=== PATIENT | female | born 1995 | race American Indian/Alaskan Native ===

== ENCOUNTER 2017-07-02 15:56 | Emergency (ER) | payer OTHER ==
[2017-07-02 15:57] VITALS: BMI 33.9
[2017-07-02 16:26] VITALS: TEMP 98.8; O2SAT 98
--- NOTE | 2017-07-02 17:43 | C.PDOC ---
History Of Present Illness 21 year old female presents to the ED for evaluation of generalized body aches, cough, and congestion which began yesterday. Patient reports family members at home with the same symptoms. Patient denies fever, chills, chest pain, shortness of breath. Time Seen by Provider: 07/02/17 16:55 Chief Complaint (Nursing): Flu-like Symptoms History Per: Patient History/Exam Limitations: no limitations Onset/Duration Of Symptoms: Hrs Current Symptoms Are (Timing): Still Present Associated Symptoms: Cough, Nasal Congestion, Other (body aches ) Additional History Per: Patient Past Medical History Reviewed: Historical Data, Nursing Documentation, Vital Signs Vital Signs: Last Vital Signs Temp 98.8 F 07/02/17 16:22 Pulse 88 07/02/17 18:30 Resp 18 07/02/17 19:06 BP 101/66 07/02/17 18:30 Pulse Ox 98 07/02/17 21:19 - Medical History PMH: Migraine Surgical History: No Surg Hx - [facility] Procedures DELIVERY OF PRODUCTS OF CONCEPTION, EXTERNAL APPROACH (11/16/15) MANUAL ASSIST DELIV NEC (03/15/14) Family History: States: Unknown Family Hx - Social History Hx Tobacco Use: No Hx Alcohol Use: No Hx Substance Use: No - Immunization History Hx Tetanus Toxoid Vaccination: No Hx Influenza Vaccination: No Hx Pneumococcal Vaccination: No Review Of Systems ENT: Positive for: Nose Congestion Cardiovascular: Negative for: Chest Pain Respiratory: Positive for: Cough. Negative for: Shortness of Breath Musculoskeletal: Positive for: Other (generalized body aches ) Physical Exam - Physical Exam Appears: Well, Non-toxic, No Acute Distress Skin: Normal Color, Warm, Dry Head: Atraumatic, Normacephalic Eye(s): bilateral: Normal Inspection, EOMI Ear(s): Bilateral: Normal Nose: Normal, No Discharge Oral Mucosa: Moist Throat: Normal, No Erythema, No Exudate Neck: Normal ROM, Supple Chest: Symmetrical, No Deformity, No Tenderness Cardiovascular: Rhythm Regular Respiratory: Normal Breath Sounds, No Rales, No Rhonchi, No Wheezing Gastrointestinal/Abdominal: Soft, No Tenderness Extremity: Normal ROM, Capillary Refill (less than 2 seconds ) ED Course And Treatment O2 Sat by Pulse Oximetry: 98 (on RA ) Pulse Ox Interpretation: Normal Progress Note: Flu test ordered and resulted positive. Motrin PO and Tamiflu PO administered. Patient is resting comfortably, tolerating PO, and is afebrile at this time. Clinical signs and symptoms are not suggestive of sepsis , meningitis, UTI, pneumonia, intra-abdominal pathology, or cellulitis. Patient will be discharged home, and instructed to follow up with his/her physician in 1-2 days without fail. Patient was instructed to return for any worsening symptoms, persistent fever, neck pain, rash, abdominal pain, or vomiting. Disposition - Disposition Disposition: HOME/ ROUTINE Disposition Time: 18:54 Condition: STABLE Additional Instructions: Follow up with your primary medical doctor or clinic in 2-5 days for further evaluation. Take medications as prescribed. Return to the emergency department at any time if symptoms persist or worsen. 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 - Scribe Statement The provider has reviewed the documentation as recorded by the Scribe (Khadijah Sandoval) All medical record entries made by the Scribe were at my direction and personally dictated by me. I have reviewed the chart and agree that the record accurately reflects my personal performance of the history, physical exam, medical decision making, and the department course for this patient. I have also personally directed, reviewed, and agree with the discharge instructions and disposition.
[2017-07-02 18:49] VITALS: BP 101/66; PULSE 88
[2017-07-02 19:07] VITALS: RESP 18
== END 2017-07-02 19:07 | disposition home or self-care (01) ==
LOC: C.ER 15:56
DX: J11.1 Influenza due to unidentified influenza virus with other respiratory manifestations (principal)

== ENCOUNTER 2017-12-12 15:54 | Emergency (ER) | payer OTHER ==
[2017-12-12 15:54] VITALS: BMI 33.9
[2017-12-12 16:17] VITALS: BP 107/67; PULSE 63; RESP 18; TEMP 99; O2SAT 98
--- NOTE | 2017-12-12 16:45 | C.PDOC ---
History Of Present Illness 22 y/o female presents to the ED with 4 days of right knee pain. States she fell down the stairs on Sunday12/09/17. She felt as if her knee gave out from under her, and denies any head trauma or LOC. [place] [facility] [place] and was discharged [place]. Now patient complains of persistent pain. 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 She is requesting to have MRI of the knee. Otherwise patient denies any numbness, tingling, or other complaints. Time Seen by Provider: 12/12/17 16:25 Chief Complaint (Nursing): Lower Extremity Problem/Injury History Per: Patient History/Exam Limitations: no limitations Onset/Duration Of Symptoms: Days Current Symptoms Are (Timing): Still Present Past Medical History Reviewed: Historical Data, Nursing Documentation, Vital Signs Vital Signs: Last Vital Signs Temp 99 F 12/12/17 16:14 Pulse 63 12/12/17 16:14 Resp 18 12/12/17 16:14 BP 107/67 12/12/17 16:14 Pulse Ox 98 12/12/17 16:45 - Medical History PMH: Migraine - [facility] Procedures DELIVERY OF PRODUCTS OF CONCEPTION, EXTERNAL APPROACH (11/16/15) MANUAL ASSIST DELIV NEC (03/15/14) Family History: States: Unknown Family Hx - Social History Hx Tobacco Use: No Hx Alcohol Use: No Hx Substance Use: No - Immunization History Hx Tetanus Toxoid Vaccination: No Hx Influenza Vaccination: No Hx Pneumococcal Vaccination: No Review Of Systems Except As Marked, All Systems Reviewed And Found Negative. Constitutional: Negative for: Fever Musculoskeletal: Positive for: Leg Pain (right knee pain and swelling) Skin: Negative for: Lesions, Bruising Neurological: Negative for: Weakness, Numbness, Incoordination Physical Exam - Physical Exam Appears: Non-toxic, No Acute Distress Skin: Normal Color, Warm, No Rash Head: Atraumatic, Normacephalic Eye(s): bilateral: Normal Inspection Oral Mucosa: Moist Neck: Normal ROM, Supple Chest: Symmetrical Extremity: Tenderness (over the right patella), No Calf Tenderness, Capillary Refill (< 2 sec), No Deformity, Other (Decreased ROM of right leg, decreased flexion of the right knee) Pulses: Left Dorsalis Pedis: Normal, Right Dorsalis Pedis: Normal Neurological/Psych: Oriented x3, Normal Speech, Normal Motor, Normal Sensation ED Course And Treatment O2 Sat by Pulse Oximetry: 98 (RA) Pulse Ox Interpretation: Normal Medical Decision Making Medical Decision Making: Impression: 22 year old with right knee injury Plan: Patient informed that MRI cannot be obtained via the emergency room, and she will need to follow up with PMD for outpatient MRI. On further discussion, patient requests work note demonstrating permission to return tomorrow. Work note and follow up instructions provided. Patient is medically stable. There is understanding of and agreement to discharge plan. Disposition Counseled Patient/Family Regarding: Diagnosis, Need For Followup - Disposition Referrals: Shaik Koch MD [Staff Provider] - Disposition: HOME/ ROUTINE Disposition Time: 16:41 Condition: GOOD Additional Instructions: CRAIG STATON, thank you for letting us take care of you today. The emergency medical care you received today was directed at your acute symptoms. If you were prescribed any medication, please fill it and take as directed. It may take several days for your symptoms to resolve. Return to the Emergency Department if your symptoms worsen, do not improve, or if you have any other problems. Please contact your doctor or call one of the physicians/clinics you have been referred to that are listed on the Patient Visit Information form that is included in your discharge packet. Bring any paperwork you were given at discharge with you along with any medications you are taking to your follow up visit. Our treatment cannot replace ongoing medical care by a primary care provider outside of the emergency department. Thank you for allowing the [facility] team to be part of your care today. Follow up with your primary care doctor in 3-5 days for re-evaluation and further management. Instructions: Knee Sprain (DC) Forms: [employer] (Italian), Work Excuse - POA Present On Arrival: None - Clinical Impression Clinical Impression: Knee sprain - Scribe Statement The provider has reviewed the documentation as recorded by the Scribe (Essence Mosquera) All medical record entries made by the Scribe were at my direction and personally dictated by me. I have reviewed the chart and agree that the record accurately reflects my personal performance of the history, physical exam, medical decision making, and the department course for this patient. I have also personally directed, reviewed, and agree with the discharge instructions and disposition.
== END 2017-12-12 17:06 | disposition home or self-care (01) ==
LOC: C.ER 15:54
DX: S83.91XA Sprain of unspecified site of right knee, initial encounter (principal); W10.9XXA Fall (on) (from) unspecified stairs and steps, initial encounter

== ENCOUNTER 2018-03-24 01:21 | Emergency (ER) | payer OTHER ==
[2018-03-24 01:27] VITALS: BMI 23.5
[2018-03-24 01:41] VITALS: O2SAT 97
--- NOTE | 2018-03-24 01:53 | C.PDOC ---
History Of Present Illness 22 year old female is brought to the ED by ambulance and police for evaluation of argumentative behavior noted prior to arrival. Patient was involved in an argument with her female partner, who she found out has a child with another male. Patient reports homicidal ideation against this male. Patient is bizarre, cannot be redirected. She admits to drinking alcohol earlier today. Patient denies suicidal ideation. Time Seen by Provider: 03/24/18 01:26 Chief Complaint (Nursing): Psychiatric Evaluation History Per: Patient History/Exam Limitations: no limitations Onset/Duration Of Symptoms: Hrs Current Symptoms Are (Timing): Still Present Suicide/Self Injury Attempted (Context): None Modifying Factor(s): Alcohol Associated Symptoms: denies: Suicidal Thoughts, Suicidal Plan Additional History Per: Patient, EMS, Law Enforcement Past Medical History Reviewed: Historical Data, Nursing Documentation, Vital Signs Vital Signs: Last Vital Signs Temp 98.6 F 03/24/18 01:35 Pulse 72 03/24/18 01:35 Resp 20 03/24/18 01:35 BP 138/88 03/24/18 01:35 Pulse Ox 97 03/24/18 01:35 - Medical History PMH: Migraine Surgical History: No Surg Hx - [facility] Procedures DELIVERY OF PRODUCTS OF CONCEPTION, EXTERNAL APPROACH (11/16/15) MANUAL ASSIST DELIV NEC (03/15/14) Family History: States: Unknown Family Hx - Social History Hx Tobacco Use: No Hx Alcohol Use: No Hx Substance Use: No - Immunization History Hx Tetanus Toxoid Vaccination: No Hx Influenza Vaccination: No Hx Pneumococcal Vaccination: No Review Of Systems Psych: Positive for: Other (arugmentative, homicidal ideation, alcohol use ) Physical Exam - Physical Exam Appears: Non-toxic, No Acute Distress, Other (tall, thin black female) Skin: Normal Color, Warm, Dry, No Other (signs of trauma/injuries ) Head: Atraumatic, Normacephalic Eye(s): bilateral: Normal Inspection Extremity: Normal ROM Neurological/Psych: Other (bizarre, argumentative, screaming, unable to be redirected) ED Course And Treatment - Laboratory Results Result Diagrams: 03/24/18 02:38 03/24/18 02:38 Lab Interpretation: Normal (ua neg, tox neg.) Urine POC: Negative O2 Sat by Pulse Oximetry: 97 (on RA) Pulse Ox Interpretation: Normal Progress Note: Bloodwork and urinalysis ordered and reviewed. Ativan IM and Geodon IM given. Reevaluation Time: 06:05 Reassessment Condition: Improved Medical Decision Making Medical Decision Making: sober angry behavior related to broken marraige and relationship issues cleared by Crisis for d/c and opt f/u. no HI/SI Disposition Doctor Will See Patient In The: Office Counseled Patient/Family Regarding: Studies Performed, Diagnosis - Disposition Disposition: HOME/ ROUTINE Disposition Time: 06:06 Condition: GOOD Forms: [employer] (Wallisian) - Clinical Impression Clinical Impression: Anger reaction - Scribe Statement The provider has reviewed the documentation as recorded by the Scribe (Khadijah Sandoval) Provider Attestation: All medical record entries made by the Scribe were at my direction and personally dictated by me. I have reviewed the chart and agree that the record accurately reflects my personal performance of the history, physical exam, medical decision making, and the department course for this patient. I have also personally directed, reviewed, and agree with the discharge instructions and disposition.
[2018-03-24 02:40] LABS: HCG,QUALITATIVE URINE NEGATIVE (NEGATIVE)
[2018-03-24 02:41] LABS: BASO % 0.5 % (0.0-2.0); EOS # 0.1 K/uL (0.0-0.7); EOS % 1.4 % (0.0-4.0); HEMOGLOBIN 12.9 g/dL (11.0-16.0); LYMPH # 1.9 K/uL (1.0-4.3); LYMPH % 35.3 % (20.0-40.0); MEAN CELL VOLUME 90.1 fL (81.0-99.0); MEAN CORPUSCULAR HEMOGLOBIN 30.6 pg (27.0-31.0); MEAN CORPUSCULAR HGB CONC 33.9 g/dL (33.0-37.0); MEAN PLATELET VOLUME 9.1 fL (7.2-11.7); MONO # 0.5 K/uL (0.0-0.8); MONO % 9.3 % (0.0-10.0); NEUT # 2.8 K/uL (1.8-7.0); NEUT % 53.5 % (50.0-75.0); RBC 4.21 Mil/uL (3.80-5.20); RED CELL DISTRIBUTION WIDTH 12.4 % (11.5-14.5); WHITE BLOOD COUNT 5.3 K/uL (4.8-10.8)
[2018-03-24 02:55] LABS: ACETAMINOPHEN < 10.0 ug/mL (10.0-30.0); ALB/GLOB RATIO 1.5 (1.0-2.1); ALBUMIN 4.3 g/dL (3.5-5.0); ALT/SGPT 20 U/L (9-52); AST/SGOT 26 U/L (14-36); BLOOD UREA NITROGEN 13 mg/dL (7-17); CALCIUM 8.8 mg/dl (8.6-10.4); GFR NON-AFRICAN AMERICAN > 60; SALICYLATE < 1.0 mg/dL 1
[2018-03-24 02:57] LABS: BARBITURATES, UR NEGATIVE (NEGATIVE); BENZODIAZEPINES, UR NEGATIVE (NEGATIVE); OPIATES, UR NEGATIVE (NEGATIVE); PHENCYCLIDINE, UR NEGATIVE (NEGATIVE)
[2018-03-24 03:00] LABS: URINE BILIRUBIN NEGATIVE (NEGATIVE); URINE CLARITY Clear (Clear); URINE COLOR YELLOW (YELLOW); URINE GLUCOSE (UA) NEGATIVE (Normal)
[2018-03-24 03:01] LABS: PH,URINE 6.5 (5.0-8.0); SQUAMOUS EPITHIAL 3 /hpf (0-5); URINE BLOOD NEGATIVE (NEGATIVE); URINE LEUKOCYTE ESTERASE NEGATIVE Leu/uL (Negative); URINE PROTEIN NEGATIVE (NEGATIVE)
[2018-03-24 06:14] VITALS: BP 100/60; PULSE 60; RESP 16; TEMP 98.5
== END 2018-03-24 06:20 | disposition home or self-care (01) ==
LOC: C.ER 01:21
DX: F91.9 Conduct disorder, unspecified (principal)

== ENCOUNTER 2018-05-22 21:04 | Emergency (ER) | payer OTHER ==
[2018-05-22 21:04] VITALS: BMI 23.5
[2018-05-22] MEDS ORDERED: Sodium Chloride 0.9% 1,000 ML IV ONE (21:35)
--- NOTE | 2018-05-22 21:41 | C.PDOC ---
History Of Present Illness 22 y/o female comes in to ED stating that she woke up yesterday morning with severe headache and fever, and developed sore throat. Patient states she took motrin with no relief. She also complains of generalized body aches but no na usea, vomiting, diarrhea, abdominal pain, or cough. She reports she has 2 children at home that both had recent URI illnesses, with one that had a fever, but both are better now. The children were seen by their bacteriologist industrial and were not treated. Patient has no other complaints. Time Seen by Provider: 05/22/18 21:23 Chief Complaint (Nursing): Headache History Per: Patient History/Exam Limitations: no limitations Onset/Duration Of Symptoms: Days Current Symptoms Are (Timing): Still Present Past Medical History Reviewed: Historical Data, Nursing Documentation, Vital Signs Vital Signs: Last Vital Signs Temp 102.9 F H 05/22/18 21:04 Pulse 113 H 05/22/18 21:04 Resp 16 05/22/18 21:04 BP 124/68 05/22/18 21:04 Pulse Ox 98 05/22/18 21:04 - Medical History PMH: Migraine Denies: Diabetes, Hepatitis, HIV, HTN, Seizures, Sexually Transmitted Disease - [facility] Procedures DELIVERY OF PRODUCTS OF CONCEPTION, EXTERNAL APPROACH (11/16/15) MANUAL ASSIST DELIV NEC (03/15/14) Family History: States: No Known Family Hx - Social History Hx Tobacco Use: No Hx Alcohol Use: Yes Hx Substance Use: No - Immunization History Hx Tetanus Toxoid Vaccination: No Hx Influenza Vaccination: No Hx Pneumococcal Vaccination: No Review Of Systems Constitutional: Positive for: Fever, Other (Body aches) ENT: Positive for: Other (Sore throat) Cardiovascular: Negative for: Chest Pain Respiratory: Negative for: Cough, Shortness of Breath Gastrointestinal: Negative for: Nausea, Vomiting, Abdominal Pain, Diarrhea Neurological: Positive for: Headache. Negative for: Dizziness Physical Exam - Physical Exam Appears: Non-toxic, Other (Uncomfortable) Skin: Warm, Dry Head: Atraumatic, Normacephalic Eye(s): bilateral: Photophobia (mild) Ear(s): Bilateral: Normal Oral Mucosa: Moist Throat: Erythema, Exudate (tonsillar exudates) Neck: Other (Anterior cervical nodes enlarged and tender) Chest: Symmetrical Cardiovascular: Rhythm Regular, No Murmur Respiratory: Normal Breath Sounds, No Rales, No Rhonchi, No Wheezing Gastrointestinal/Abdominal: Soft, No Tenderness, No Rebound Extremity: Bilateral: Atraumatic, Normal Color And Temperature, Normal ROM Neurological/Psych: Oriented x3, Normal Speech ED Course And Treatment - Laboratory Results Result Diagrams: 05/22/18 21:59 05/22/18 21:59 Lab Interpretation: Abnormal (Flu and Rapid strep negative, Urine + nitrites with moderate bacteria) O2 Sat by Pulse Oximetry: 98 (RA) Pulse Ox Interpretation: Normal Reevaluation Time: 23:35 Reassessment Condition: Improved (after IV fluids, Toradol and Rocephin) Medical Decision Making Medical Decision Making: Plan: --Bloodwork --IV fluids 1L --Tylenol PO --Flu swab --Rapid strep --UA Disposition Counseled Patient/Family Regarding: Studies Performed, Diagnosis, Need For Followup, Rx Given - Disposition Referrals: Shaik Koch MD [Staff Provider] - Disposition: HOME/ ROUTINE Disposition Time: 23:35 Condition: IMPROVED Prescriptions: Cephalexin [cephalexin] 500 mg PO TID #21 cap Instructions: Urinary Tract Infections in Adults, Headache, Adult (DC), Sore Throat in Adults Forms: [employer] (Hebrew) - Clinical Impression Clinical Impression: Pyelonephritis, Pharyngitis, Headache - Scribe Statement The provider has reviewed the documentation as recorded by the Kari Martinez Provider Attestation: All medical record entries made by the Kari were at my direction and personally dictated by me. I have reviewed the chart and agree that the record accurately reflects my personal performance of the history, physical exam, medical decision making, and the department course for this patient. I have also personally directed, reviewed, and agree with the discharge instructions and disposition.
[2018-05-22] MEDS ORDERED: Sodium Chloride 0.9% 1,000 ML ONE (21:47)
[2018-05-22 22:08] LABS: BASO % 0.3 % (0.0-2.0); HEMOGLOBIN 12.7 g/dL (11.0-16.0); LYMPH % 11.6 % (20.0-40.0); MEAN CELL VOLUME 90.8 fL (81.0-99.0); MEAN CORPUSCULAR HGB CONC 34.1 g/dL (33.0-37.0); MEAN PLATELET VOLUME 8.6 fL (7.2-11.7); MONO # 0.7 K/uL (0.0-0.8); NEUT # 6.5 K/uL (1.8-7.0); NEUT % 79.1 % (50.0-75.0); RBC 4.1 Mil/uL (3.80-5.20); RED CELL DISTRIBUTION WIDTH 12.9 % (11.5-14.5)
[2018-05-22 22:09] LABS: WHITE BLOOD COUNT 8.3 K/uL (4.8-10.8)
[2018-05-22 22:19] LABS: ALB/GLOB RATIO 1.6 (1.0-2.1); ALBUMIN 4.5 g/dL (3.5-5.0); ALT/SGPT 22 U/L (9-52); AST/SGOT 27 U/L (14-36); BLOOD UREA NITROGEN 11 mg/dL (7-17); CALCIUM 9.1 mg/dl (8.6-10.4); GFR NON-AFRICAN AMERICAN > 60
[2018-05-22 22:21] LABS: SQUAMOUS EPITHIAL 3 /hpf (0-5); URINE BACTERIA MOD (<OCC); URINE BILIRUBIN NEGATIVE (NEGATIVE); URINE BLOOD NEGATIVE (NEGATIVE); URINE CLARITY Hazy (Clear); URINE GLUCOSE (UA) NORMAL (Normal); URINE LEUKOCYTE ESTERASE NEG Leu/uL (Negative); URINE PROTEIN NEGATIVE (NEGATIVE)
[2018-05-22 22:22] LABS: URINE COLOR YELLOW (YELLOW)
[2018-05-22 23:27] VITALS: BP 99/61; PULSE 87; RESP 18; TEMP 98.1
[2018-05-22 23:37] VITALS: O2SAT 98
== END 2018-05-22 23:47 | disposition home or self-care (01) ==
LOC: C.ER 21:04
DX: N12 Tubulo-interstitial nephritis, not specified as acute or chronic (principal); J02.9 Acute pharyngitis, unspecified; R51 Headache
CPT/HCPCS: 80053; 81001; 81025; 85025; 87070; 87086; 87181; 87430; 87804; 96374; 96375; 99285; J0696; J1885; J7030

== ENCOUNTER 2018-05-26 18:17 | Emergency (ER) | payer OTHER | END 2018-05-26 22:06 | disposition home or self-care (01) | LOC: C.ER 18:17 ==